=== PATIENT | male | born 1990 | race Two or more races ===

== ENCOUNTER 2025-01-31 16:47 | Emergency (ER) | payer MEDICAID, OTHER ==
[~2025-01-31] VITALS: Ht 167.6 cm; Wt 105.8 kg
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
[2025-01-31 19:29] LABS: Hematocrit 52.3 % (41.0-53.0); Hemoglobin 18.2 g/dL (13.5-17.5); Mean Corpuscular Hemoglobin 33.1 pg (28.0-32.0); Mean Corpuscular Volume 94.9 fL (80.0-100.0); Nucleated Red Blood Cells % 0.2 %
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
[2025-01-31 19:40] LABS: Albumin 4.6 g/dL (3.2-4.8); Alkaline Phosphatase 105 U/L (46-116); Anion Gap 11 (5-15); BUN/Creatinine Ratio 6.9 (10.0-20.0); Bilirubin, Total 0.6 mg/dL (0.2-1.0); Calcium 9.1 mg/dL (8.7-10.4); Carbon Dioxide 28 mmol/L (20-31); Chloride 106 mmol/L (98-107); Glucose 93 mg/dL (74-106); Potassium 3.7 mmol/L (3.5-5.1); Sodium 145 mmol/L (136-145); Total Protein 7.9 g/dL (5.7-8.2)
[2025-01-31 19:43] LABS: Alanine Aminotransferase 121 U/L (7-40); Blood Urea Nitrogen 7 mg/dL (9-23)
[2025-01-31 21:52] VITALS: BP 127/68; PULSE 104; RESP 18; TEMP 98.7
[2025-01-31 22:15] VITALS: O2SAT 100
[2025-01-31] MEDS: FAMOTIDINE (10MG/ML) 2ML VL IV ONE (22:17)
[2025-01-31] MEDS: METHOCARBAMOL 500 MG TAB PO ONE (22:17)
[2025-01-31] MEDS: KETOROLAC TROMETH 30 MG/ML 1ML VIAL IV ONE (22:17)
[2025-01-31] MEDS: SODIUM CHLORIDE 0.9% 1,000 ML IV ONE (22:18)
[2025-01-31] MEDS ORDERED: LORA-1123 PO (22:35)
[2025-01-31] MEDS ORDERED: IBUP-1455 PO (22:35)
[2025-01-31] MEDS ORDERED: CHL25C PO (22:35)
[2025-01-31] MEDS ORDERED: METH-1182 PO (22:35)
[2025-01-31 23:20] LABS: Urine Amorphous Crystal MOD /hpf (None Seen); Urine Protein, UAD 1+ (Negative)
== END 2025-01-31 23:10 | disposition home or self-care (01) ==
LOC: ER 16:54
DX: M51.26 Other intervertebral disc displacement, lumbar region (principal); M51.27 Other intervertebral disc displacement, lumbosacral region; F10.10 Alcohol abuse, uncomplicated
CPT/HCPCS: 36415; 72131; 80053; 80320; 81001; 85025; 96361; 96374; 96375; 99285; J1100; J1885; J3490; J7030